=== PATIENT | male | born 2005 | race Two or more races ===

== ENCOUNTER 2024-11-21 11:57 | Emergency (ER) | payer MEDICAID, SELFPAY ==
[2024-11-21 12:04] VITALS: BP 161/92; PULSE 86; RESP 18; TEMP 36.7; O2SAT 97; BMI 32.3
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
== END 2024-11-21 12:17 | disposition home or self-care (01) ==
LOC: SERX 12:21
PROVIDERS: Emergency Provider Physician Assistant Medical; PCP Nurse Practitioner
DX: T14.90XA Injury, unspecified, initial encounter (principal); V43.51XA Car driver injured in collision with sport utility vehicle in traffic accident, initial encounter; Y92.410 Unspecified street and highway as the place of occurrence of the external cause
CPT/HCPCS: 99282